=== PATIENT | female | born 1970 | race Caucasian/White ===

== ENCOUNTER 2019-05-27 13:27 | Emergency (ER) | payer BC ==
[~2019-05-27] VITALS: Ht 154.9 cm; Wt 54.4 kg
[2019-05-27 13:39] VITALS: BP 121/71
--- NOTE | 2019-05-27 13:42 | NUR ---
PT TO LOBBY VSS.
--- NOTE | 2019-05-27 14:23 | NUR ---
PT AMB TO BED 4
--- NOTE | 2019-05-27 14:24 | NUR ---
48/F BIB FAMILY C/O COUGH,SORETHROAT,HEADACHE SINCE LAST NIGHT. PATIENT STATES PAIN OF 3/10 AT THIS TIME; PATIENT POSITIONED FOR COMFORT; HOB ELEVATED; BEDRAILS UP X1; BED DOWN. ER MD MADE AWARE OF PT STATUS.
[2019-05-27 15:15] VITALS: BP 111/65
--- NOTE | 2019-05-27 15:15 | NUR ---
Patient discharged with v/s stable. Written and verbal after care instructions given and explained. Patient alert, oriented and verbalized understanding of instructions. Ambulatory with steady gait. All questions addressed prior to discharge. ID band removed. Patient advised to follow up with PMD. Rx of NAPROSYN, AMOXICILLIN & DEBROX given. Patient educated on indication of medication including possible reaction and side effects. Opportunity to ask questions provided and answered.
== END 2019-05-27 15:15 | disposition home or self-care (01) ==
LOC: MED 13:27
DX: J02.9 Acute pharyngitis, unspecified (principal); H61.23 Impacted cerumen, bilateral; Z98.890 Other specified postprocedural states
CPT/HCPCS: 99283